=== PATIENT | male | born 1965 | race Caucasian/White ===

== ENCOUNTER 2020-11-17 10:37 | Day surgery (SDC) | payer BC ==
[~2020-11-17 10:37] MED LIST: CLINDAMYCIN-D5W 900 MG/50 ML*** 900 MG/50 ML BAG IV ONE; Lactated Ringers 1,000 ML IV ONE; Sensorcaine 0.25% 10 ML ONE
[2020-11-17] MEDS ORDERED: GENTAMICIN 80 MG/50 ML PREMIX*** 80 MG/50 ML ML IV ONE (10:38)
[2020-11-17] MEDS ORDERED: Lactated Ringers 1,000 ML IV SCH (11:00)
[2020-11-17] MEDS ORDERED: CLINDAMYCIN-D5W 900 MG/50 ML*** 900 MG/50 ML BAG IV SCH (11:00)
[2020-11-17] MEDS ORDERED: DIPRIVAN 200 MG/20 ML IV ONE (12:49)
[2020-11-17] MEDS ORDERED: Decadron 4 MG INJ ONE (12:49)
[2020-11-17] MEDS ORDERED: Zofran 4 MG/2 ML VIAL ONE (12:49)
[2020-11-17] MEDS ORDERED: SUBLIMAZE 100 MCG/2 ML ONE ×3 (12:50→14:12)
[2020-11-17] MEDS ORDERED: Versed 2 MG/2 ML Injection ONE (12:50)
[2020-11-17] MEDS ORDERED: Xylocaine-Mpf 2% 5 Ml Vial ONE (12:51)
[2020-11-17] MEDS ORDERED: Zemuron 100 MG/10 ML ONE (12:56)
[2020-11-17] MEDS ORDERED: TRANDATE 20 MG/4 ML SYRINGE IV ONE (14:14)
[2020-11-17] MEDS ORDERED: BRIDION 200MG/2ML IV ONE (14:21)
[2020-11-17] MEDS ORDERED: TORAdol 30 mg Injection ONE (14:21)
[2020-11-17] MEDS ORDERED: Lactated Ringers 1,000 ML IV ONE (15:01)
[2020-11-17 15:31] VITALS: O2SAT 94
[2020-11-17 16:07] VITALS: BP 145/88; PULSE 70
--- NOTE | 2020-11-18 11:37 | OP ---
SURGERY DATE: 11/17/2020 SURGERY TIME: 1346 PREOPERATIVE DIAGNOSIS: 1. CHRONIC CHOLECYSTITIS. POSTOPERATIVE DIAGNOSIS: 1. CHRONIC CHOLECYSTITIS. PROCEDURE: 1. Laparoscopic cholecystectomy. SURGEON: Juan Jose Cronin M.D. ANESTHESIA: General. ESTIMATED BLOOD LOSS: Minimal. CONDITION: Stable. COMPLICATIONS: None. SPECIMENS: 1. Gallbladder. HISTORY OF PRESENT ILLNESS: Patient is a 55 year-old male with intermittent right upper quadrant abdominal pain mostly postprandial. Imaging consistent with chronic cholecystitis. Discussed with the patient the risk of infection, bleeding, injury to nearby structure, and failure to resolve symptoms and he elected to proceed with surgery. FINDINGS: Chronic cholecystitis with omental adhesions to the gallbladder, critical view obtained. DESCRIPTION OF PROCEDURE: The patient was brought to the OR. General anesthesia was induced. Routinely positioned, prepped, draped, supine, arms out. Sequential compression devices applied and received preoperative antibiotic and time-out was performed. Veress needle inserted in left upper quadrant. Opening pressure was 4. Pneumoperitoneum was established. 5 mm Optiview trocar placed in the left upper quadrant. Abdomen surveyed. An 11 mm trocar placed infraumbilically at his prior scar. Two additional 5 mm trocars placed in the right upper quadrant. Abdomen was surveyed. There were some omental adhesions to the gallbladder which were taken down with cautery. Gallbladder routinely retracted. Cystic duct/cystic artery dissected out with a combination of L-hook cautery, [place], and blunt dissection. The critical view was clearly obtained. The cystic artery taken 2 down with 5 mm MediClip panel edge sealer. Cystic duct taken 3 down with 5 mm MediClip panel edge sealer. Both divided. Gallbladder taken off the liver bed. Gallbladder did have a hole in it from retraction and there was spillage of bile without any spillage of stones. This was suction and irrigated until clear. The gallbladder placed in a specimen bag. Removed through the 11 trocar site. The trocar reinserted. Right upper quadrant reinspected. There was good hemostasis. The clips are in good position. It had been suction and irrigated until clear. The 11 trocar site closed with 0 Vicryl interrupted suture passer. Right upper quadrant ports removed under direct visualization and the left upper quadrant port used for desufflation and then removed. The incisions closed with 4-0 Vicryl sutures. Marcaine had been injected in the port sites. Steri-strips and sterile dressings applied. The patient tolerated the procedure well. All counts were correct. He was extubated and taken to recovery in stable condition.
== END 2020-11-17 16:05 | disposition home or self-care (01) ==
LOC: SDC 10:37
PROVIDERS: ATTEND Surgery
DX: K81.1 Chronic cholecystitis (principal); K82.8 Other specified diseases of gallbladder; Z79.899 Other long term (current) drug therapy
CPT/HCPCS: J1100; J1580; J1885; J2250; J2405; J2704; J3010